=== PATIENT | female | born 1945 | race Caucasian/White ===

== ENCOUNTER → 2018-08-28 | Day surgery (SDC) | payer OTHER ==
--- NOTE | 2018-08-30 20:21 | PATH ---
Surgical Pathology Report Patient Name: SHARIF MUSA [facility]. Rec. #: [id number] /Age/Gender: 1945 (Age: 72) / F Account: [id number] Location: [facility] Taken: 08/28/2018 Received: 08/28/2018 Reported: 08/30/2018 Physicians: Indira Shane M.D. Specimen(s) Received A: LEFT BREAST SPECIMEN - WITH CALCS B: LEFT BREAST SPECIMEN - WITHOUT CALCS Clinical History Nonpalpable lesion Mammographic findings: Microcalcification, suspicious Final Diagnosis A. BREAST, LEFT, WITH CALCIFICATIONS, STEREOTACTIC CORE BIOPSY: BENIGN BREAST TISSUE WITH FIBROCYSTIC CHANGES INCLUDING STROMAL FIBROSIS, MICROCYSTS, APOCRINE METAPLASIA, MILD PERIDUCTAL CHRONIC INFLAMMATION, AND RARE MICROCALCIFICATIONS. B. BREAST, LEFT, WITHOUT CALCIFICATIONS, STEREOTACTIC CORE BIOPSY: BENIGN BREAST TISSUE WITH FIBROCYSTIC CHANGES INCLUDING STROMAL FIBROSIS, MICROCYSTS, AND APOCRINE METAPLASIA. Comment: Deeper levels have been examined. Electronically Signed Lorie Hanley M.D. Gross Description A. Received in formalin labeled "left breast with calcifications," are 3 pearson-yellow, cylindrical portions of fibroadipose tissue ranging from 1.0-1.4 cm in length and averaging 0.4 cm in diameter. The specimens are submitted in toto in one cassette. B. Received in formalin labeled "left breast without calcifications," is a 2.4 x 2.2 x 0.3 cm aggregate of multiple pearson-yellow, irregular to cylindrical portions of fibroadipose tissue. The formalin is filtered and the specimen is entirely submitted in one cassette. Time to formalin fixation: 5 minutes Total formalin fixation time: Approximately 6 hours. /08/28/2018 saudi08/28/2018
== END | disposition home or self-care (01) ==
LOC: FMAMMOTONE 10:54
PROVIDERS: ATTEND Surgery
PROC: 0HBU3ZX Excision of Left Breast, Percutaneous Approach, Diagnostic (ICD-10-PCS; principal; 2018-08-28)
DX: N60.12 Diffuse cystic mastopathy of left breast (principal); N60.32 Fibrosclerosis of left breast; N64.89 Other specified disorders of breast; R92.1 Mammographic calcification found on diagnostic imaging of breast
CPT/HCPCS: 19081; 87899; 88305-TC; A4648